=== PATIENT | male | born 1985 | race Caucasian/White ===

== ENCOUNTER 2021-11-02 19:14 | Emergency (ER) | payer OTHER ==
[2021-11-02 20:06] LABS: BASOPHIL 0.4 % (0-2); EOSINOPHIL 1.3 % (0-5); HCT 44.5 % (42.0-52.0); HGB 14.9 g/dl (13.2-18.0); LYMPHOCYTE 28.2 % (15-48); MCH 28.4 pg (25.0-31.0); MCHC 33.5 g/dL (32.0-36.0); MCV 84.8 fL (78.0-100.0); MONOCYTE 7.9 % (0-12); MPV 9.5 fL (6.0-9.5); NEUTROPHIL 61.8 % (41-80); NRBC 0; PLT 231 K/uL (150-400); RBC 5.25 M/uL (4.70-6.00); RDW 11.9 % (11.5-14.0); WBC 5.3 K/uL (4.0-10.5)
[2021-11-02 20:21] LABS: INR 1.01 (0.9-1.2)
[2021-11-02 20:22] LABS: PTT 25.5 SECONDS (24.9-34.6)
[2021-11-02 20:28] LABS: CREATININE 0.91 mg/dL (0.67-1.17); POTASSIUM 3.4 mmol/L (3.5-5.1)
[2021-11-02 20:29] LABS: ALBUMIN 4.3 g/dL (3.4-5.0); BILIRUBIN - TOTAL 0.3 mg/dL (0.2-1.0); GLOBULIN (CALCULATION) 3.4 g/dL; TOTAL PROTEIN 7.7 g/dL (6.4-8.2)
== END 2021-11-02 23:25 | disposition home or self-care (01) ==
LOC: FER 19:14
PROVIDERS: Emergency Medicine
DX: R07.89 Other chest pain (principal); I45.10 Unspecified right bundle-branch block; F41.9 Anxiety disorder, unspecified; Z88.2 Allergy status to sulfonamides; Z79.899 Other long term (current) drug therapy
CPT/HCPCS: 36415; 71045; 80053; 84484; 85025; 85610; 85730; 93005; J2270; J2405; J7030